=== PATIENT | female | born 1975 | race Caucasian/White ===

== ENCOUNTER 2022-12-29 10:11 | Emergency (ER) | payer OTHER ==
[~2022-12-29] VITALS: Ht 167.6 cm; Wt 81.6 kg
[2022-12-29 10:17] VITALS: O2SAT 96
[2022-12-29 10:55] LABS: CALCIUM 8.8 mg/dL (8.5-10.1); CREATININE 1.1 mg/dL (0.6-1.3); POTASSIUM 4.2 mmol/L (3.5-5.1)
[2022-12-29 11:01] LABS: ALBUMIN 3.3 g/dL (3.4-5.0); BILIRUBIN,TOTAL 0.3 mg/dL (0.2-1.0); MAGNESIUM 2.2 mg/dL (1.8-2.4); PHOSPHOROUS 3.4 mg/dL (2.5-4.9); TOTAL PROTEIN, SERUM 6.9 g/dL (6.4-8.2)
[2022-12-29 11:03] LABS: BASOPHILS # (AUTO) 0.2 K/UL (0.0-0.2); BASOPHILS % (AUTO) 2.1 % (0.0-2.0); DIFFERENTIAL COMMENT 0; EOSINOPHILS # (AUTO) 0.4 K/uL (0.0-0.7); HEMATOCRIT 39.1 % (31.2-41.9); HEMOGLOBIN 12.7 g/dL (10.9-14.3); LYMPHOCYTES # (AUTO) 2.1 K/uL (0.8-4.8); LYMPHOCYTES % (AUTO) 24.7 % (20.5-51.5); MEAN CORPUSCULAR HEMOGLOBIN 31.6 uug (24.7-32.8); MEAN CORPUSCULAR HGB CONC 32 g/dL (32.3-35.6); MEAN CORPUSCULAR VOLUME 97.5 fL (75.5-95.3); MONOCYTES # (AUTO) 0.5 K/uL (0.1-1.30); MONOCYTES % (AUTO) 5.3 % (0.0-11.0); NEUTROPHILS # (AUTO) 5.4 K/uL (1.8-8.9); NEUTROPHILS % (AUTO) 62.9 % (38.5-71.5); PLATELET COUNT (AUTO) 238 K/uL (179-408); RED BLOOD CELL COUNT(AUTO) 4.01 MIL/uL (3.63-4.92); RED CELL DISTRIBUTION WIDTH 13.9 % (12.3-17.7); WHITE BLOOD COUNT (AUTO) 8.6 K/uL (3.8-11.8)
[2022-12-29] MEDS ORDERED: IOHEXOL 300MG/ML 100 ML INFUS..BTL ONE (13:12)
[2022-12-29] MEDS ORDERED: IV NORMAL SALINE 250 ML IV ONE (13:12)
[2022-12-29] MEDS ORDERED: SWABABLE VALVE TRANSFER SET EA MC ONE (13:12)
== END 2022-12-29 17:40 | disposition left against medical advice (07) ==
LOC: ER 10:14
DX: R07.89 Other chest pain (principal); I95.9 Hypotension, unspecified; R77.8 Other specified abnormalities of plasma proteins; I48.91 Unspecified atrial fibrillation; Z95.0 Presence of cardiac pacemaker; Z20.822 Contact with and (suspected) exposure to COVID-19
CPT/HCPCS: 99285; 70450; 71045; 87426; 87804 ×2; 80053; 83880; 83735; 84100; 85025; 85379; 84484 ×2; 36415; 93005; 71260; 83605; Q9967; A4663